=== PATIENT | female | born 1990 | race Two or more races ===

== ENCOUNTER 2017-02-01 01:09 | Emergency (ER) | payer BC ==
[~2017-02-01] VITALS: Ht 162.6 cm; Wt 54.4 kg
--- NOTE | 2017-02-01 01:30 | NUR ---
Patient brought in by co worker for c/o left arm injury about 30mins prior to arrival. Patient states was climbing a waist high fence and fell back and injuried left arm. Has obvious deformaty with swelling on left arm. capillary refill less than 3 seconds
[2017-02-01] MEDS ORDERED: ONDANSETRON 4 MG/2 ML VIAL IV ONE (02:00)
[2017-02-01] MEDS ORDERED: MORPHINE SULFATE 2 MG/1 ML DISP.SYRIN IV ONE (02:00)
[2017-02-01] MEDS ORDERED: KETOROLAC TROMETHAMINE 30 MG INJ IVP ONE (02:00)
[2017-02-01] MEDS ORDERED: ONDANSETRON 4 MG/2 ML VIAL ONE (02:10)
[2017-02-01] MEDS ORDERED: MORPHINE SULFATE 2 MG/1 ML DISP.SYRIN ONE (02:10)
[2017-02-01] MEDS ORDERED: KETOROLAC TROMETHAMINE 30 MG INJ ONE (02:10)
[2017-02-01] MEDS ORDERED: MORPHINE SULFATE 4 MG/1 ML DISP.SYRIN IV ONE ×2 (02:15→04:00)
[2017-02-01] MEDS ORDERED: MORPHINE SULFATE 4 MG/1 ML DISP.SYRIN ONE ×2 (02:36→04:12)
--- NOTE | 2017-02-01 04:10 | NUR ---
IV removed. Catheter intact and site benign. Pressure and 4x4 gauze applied to site. No bleeding noted.
[2017-02-01 04:11] VITALS: BP 125/89
== END 2017-02-01 04:14 | disposition home or self-care (01) ==
LOC: ER 01:11
DX: S52.532A Colles' fracture of left radius, initial encounter for closed fracture (principal); W17.89XA Other fall from one level to another, initial encounter; Y93.39 Activity, other involving climbing, rappelling and jumping off; Y92.89 Other specified places as the place of occurrence of the external cause; Y99.8 Other external cause status
CPT/HCPCS: 73110; 73130; J1885; J2270; J2405